=== PATIENT | female | born 1955 | race Caucasian/White ===

== ENCOUNTER → 2024-03-20 12:51 | Outpatient (REF) | payer MEDICARE, OTHER, SELFPAY | LOC: HWRAD 12:51 | PROVIDERS: ATTENDING PHYSICIAN Internal Medicine | DX: M27.8 Other specified diseases of jaws (principal) | CPT/HCPCS: 76536 ==

== ENCOUNTER 2024-04-20 12:11 | Emergency (ER) | payer MEDICARE, OTHER, SELFPAY ==
[2024-04-20 12:14] VITALS: BP 135/83
[2024-04-20 12:46] VITALS: BP 104/67; BP 114/70; BP 115/77; PULSE 57; PULSE 60; PULSE 74
--- NOTE | 2024-04-20 12:48 | ED.GENMED ---
History of Present Illness
General
Chief Complaint: Dizziness
Source: patient
Exam Limitations: none
Time Seen by Provider: 04/20/24 12:33
History of Present Illness
History of Present Illness:
68-year-old female presents complaining of dizziness worsening since yesterday. She describes a spinning sensation when she changes position. There is no associated double vision blurry vision or loss of vision. No headache or unilateral numbness
or weakness. No recent fever or URI symptoms. She does get slightly nauseous when she gets dizzy. The dizziness that tends to fatigue if she sits still. Also is worse with rolling over in bed. She was started on propranolol about a month ago
for essential tremor.
Past History
Past History
ED Past Medical History: Other (She is post hysterectomy status post tummy tuck status post left oopherectomy status post appendectomy)
Social History
Tobacco: Non-smoker
Alcohol: Occasional
Family History
Family History: CAD
Phy Exam
Physical Exam
Physical Exam:
General: Well-appearing female no acute respiratory distress
HEENT: Normocephalic atraumatic pupils equal round reactive to light TM slightly obscured by cerumen but portions visualized are within normal limits
Heart: Regular rate and rhythm no murmurs
Lungs: Clear no wheeze or rales
Neurologic exam: Alert and oriented x 3 finger-nose intact [id number] intact. No ataxia. No drift no dysarthria or aphasia [place]-Hallpike maneuver reproduces dizzy symptoms worse on the right side. Dizziness lasts approximately 10 to 15 seconds
and fades away. There is subtle horizontal nystagmus noted during this.
Extremities: No cyanosis
Course
Orders/Labs/Results
Orders:
Orders
04/20/24 12:46
Orthostatic VS- Treatment ONCE
PT Consult [Pt Eval And Treat] Urgent
Treatment: vestibular eval
Activity Level: Ambulate
07/05/24 13:04
Complete Blood Count/With Diff Urgent
Comprehensive Metabolic Panel Urgent
04/20/24 13:34
Meclizine [Antivert] 25 mg PO NOW STA
Abnormal Lab Results
04/20/24
13:04
Eosinophils % 7.1 H %
(0-6)
04/20/24 13:04
04/20/24 13:04
Vital Signs
Initial and Last Documented VS:
Initial Vital Signs
Temp Pulse Resp BP Pulse Ox
97.7 F 73 16 135/83 98
04/20/24 12:14 04/20/24 12:14 04/20/24 12:14 04/20/24 12:14 04/20/24 12:14
Last Documented Vital Signs
Temp Pulse Resp BP Pulse Ox
97.7 F 55 21 102/59 98
04/20/24 12:14 04/20/24 13:01 04/20/24 13:01 04/20/24 13:01 04/20/24 13:01
MDM/Problems Addressed
Differential Diagnosis Includes:
Dizziness. Consider positional vertigo versus volume depletion versus dehydration or electrolyte abnormality. Do not suspect CVA.
Check labs and orthostatics. Consult physical therapy for vestibular eval.
Consider treating with meclizine after PT evaluation
*Critical Care Note
Total Time (30-74mins, 75-104mins- exclusive of procedures): Not Applicable
Update Note
Update Note:
PT evaluated the patient and they are in agreement that her vertigo is worse on the right with [place]-Hallpike. They put her through the Alex maneuver. I did write for meclizine. She received a dose here. A prescription was provided for outpatient
vestibular therapy. She will be discharged home with positional vertigo. Do not suspect CVA
ED Attending Note
-
Portions of this chart may have been created with voice recognition software.� Occasional wrong word or��sound alike� substitutions may have occurred due to the inherent limitations of voice recognition software.
Discharge Plan
Departure
Patient Disposition: Home (Routine Discharge)
Date of Disposition: 04/20/24
Time of Disposition: 14:09
Patient with high blood pressure during this ER visit?: No
Discharge Problem:
Vertigo
Instructions: Vertigo (a type of dizziness)
Prescriptions:
New
meclizine 25 mg tablet
25 mg PO TID PRN (Reason: dizziness) Qty: 10 0RF
No Action
acetaminophen [Tylenol Extra Strength] 500 mg tablet
1,000 mg PO Q6HPRN PRN (Reason: mild pain) Qty: 1 0RF
ibuprofen 200 mg tablet
400 - 600 mg PO Q6HPRN PRN (Reason: moderate pain) Qty: 1 0RF
polyethylene glycol 3350 [Miralax] 17 gram/dose powder
4 g PO DAILY PRN (Reason: Constipation) Qty: 119 0RF
Rx Instructions:
start a laxative such as MIRALAX on day 2 after surgery if no bowel movement yet as long as no nausea/vomiting and passing gas
oxycodone 5 mg tablet
5 mg PO Q4HPRN PRN (Reason: breakthrough/severe pain) Qty: 10 0RF
Referrals:
Maira Silva MD [Family Provider] -
Activity Restrictions/Additional Instructions:
Stay hydrated. Use meclizine as needed for dizziness. Follow up with PT for vestibular rehab.
Interventions
Interventions:
*Risk Screen - Suicide Last Done: 04/20/24 12:14
*General Assessment Last Done: 04/20/24 12:14
*Neglect/Abuse Screening Last Done: 04/20/24 12:14
ED- Fall Risk Assessment Last Done: 04/20/24 12:51
*ED COVID-19 Vaccine History Last Done: 04/20/24 12:51
ED- Neurological Assessment Last Done: 04/20/24 12:51
ED- Cardiac Assessment Last Done: 04/20/24 12:51
ED Swallowing Screen Last Done: 04/20/24 12:51
Discharge Date and Time
Print Language: AZERI
[2024-04-20 12:51] VITALS: BMI 25.8
[2024-04-20 12:52] VITALS: BP 115/77
[2024-04-20 13:01] VITALS: BP 102/59
[2024-04-20 13:15] LABS: % Basophils 0.7 % (0-2); % Eosinophils 7.1 % (0-6); % Immature Granulocytes 0.2 % (0-0.5); % Lymphocytes 37.6 % (20.5-51.1); % Monocytes 6.7 % (1.7-9.3); % Neutrophils 47.7 % (42.2-75.2); Absolute Eosinophils 0.4 10^3/uL (0-0.7); Absolute Lymphocytes 2.2 10^3/uL (1.2-3.4); Absolute Monocytes 0.4 10^3/uL (0.1-0.6); Absolute Neutrophils 2.8 10^3/uL (1.4-6.5); Hemoglobin 13.1 g/dL (12.0-16.0); Mean Corp Hgb Conc. 34.5 g/dL (33.0-37.0); Mean Corpuscular Hgb 29.7 pg (27.0-31.0); Mean Corpuscular Volume 86.2 fL (81.0-99.0); Mean Platelet Volume 9.6 fL (7.4-10.4); Nucleated Red Blood Cells % 0 %; Platelet Count 309 10^3/uL (130-400); Red Blood Cell Count 4.41 10^6/uL (4.20-5.40); Red Cell Dist. Width 12.5 % (11.5-14.5); White Blood Cell Count 5.9 10^3/uL (4.8-10.8)
[2024-04-20 13:25] LABS: ALT (SGPT) 15 U/L (0-35); AST (SGOT) 19 U/L (14-36); Albumin 4.4 g/dl (3.5-5.0); Alkaline Phosphatase 74 U/L (38-126); Blood Urea Nitrogen 13 mg/dl (7-17); Calcium 9.3 mg/dl (8.4-10.2); Carbon Dioxide 26 mmol/L (22-30); Chloride 107 mmol/L (98-107); Estimated Creatinine Clearance 80 ml/min; Glucose 90 mg/dl (70-99); Potassium 4.2 mmol/L (3.5-5.1); Sodium 139 mmol/L (135-145); Total Bilirubin 0.4 mg/dl (0.2-1.3); Total Protein 6.6 g/dl (6.3-8.2); eGFR > 60.00
[2024-04-20] MEDS: ANTIVERT 25 MG PO (13:50)
[2024-04-20 14:00] VITALS: BP 98/68
[2024-04-20 14:31] VITALS: BP 106/68
== END 2024-04-20 14:35 | disposition home or self-care (01) ==
LOC: EMR 12:11
PROVIDERS: Physician Assistant; EMERGENCY PHYSICIAN Emergency Medicine; FAMILY PHYSICIAN Internal Medicine
DX: R42 Dizziness and giddiness (principal); R53.83 Other fatigue; G25.0 Essential tremor; Z82.49 Family history of ischemic heart disease and other diseases of the circulatory system; Z90.710 Acquired absence of both cervix and uterus
CPT/HCPCS: 99283; 80053; 85025

== ENCOUNTER → 2024-04-24 09:43 | Outpatient (REF) | payer MEDICARE, OTHER, SELFPAY | LOC: MRI 3T 09:43 | PROVIDERS: ATTENDING PHYSICIAN Internal Medicine | DX: M27.40 Unspecified cyst of jaw (principal) | CPT/HCPCS: 70543; A9575 ==

== ENCOUNTER → 2024-07-03 10:28 | Outpatient (REF) | payer MEDICARE, OTHER, SELFPAY | LOC: RCS 10:28 | PROVIDERS: ATTENDING PHYSICIAN Internal Medicine Cardiovascular Disease; FAMILY PHYSICIAN Internal Medicine | DX: I34.0 Nonrheumatic mitral (valve) insufficiency (principal) | CPT/HCPCS: 93306 ==

== ENCOUNTER → 2024-09-25 08:28 | Outpatient (REF) | payer MEDICARE, OTHER, SELFPAY ==
[2024-09-25 09:12] LABS: % Basophils 0.8 % (0-2); % Eosinophils 6.6 % (0-6); % Lymphocytes 42.4 % (20.5-51.1); % Monocytes 7.4 % (1.7-9.3); % Neutrophils 42.8 % (42.2-75.2); Absolute Eosinophils 0.3 10^3/uL (0-0.7); Absolute Lymphocytes 2.1 10^3/uL (1.2-3.4); Absolute Monocytes 0.4 10^3/uL (0.1-0.6); Absolute Neutrophils 2.1 10^3/uL (1.4-6.5); Hematocrit 38.4 % (37.0-47.0); Hemoglobin 13.2 g/dL (12.0-16.0); Mean Corp Hgb Conc. 34.4 g/dL (33.0-37.0); Mean Corpuscular Hgb 30.4 pg (27.0-31.0); Mean Corpuscular Volume 88.5 fL (81.0-99.0); Mean Platelet Volume 9.4 fL (7.4-10.4); Nucleated Red Blood Cells % 0 %; Platelet Count 292 10^3/uL (130-400); Red Blood Cell Count 4.34 10^6/uL (4.20-5.40); Red Cell Dist. Width 12.3 % (11.5-14.5)
[2024-09-25 10:04] LABS: ALT (SGPT) 18 U/L (0-35); AST (SGOT) 19 U/L (14-36); Albumin 4.1 g/dl (3.5-5.0); Alkaline Phosphatase 64 U/L (38-126); Blood Urea Nitrogen 13 mg/dl (7-17); Calcium 9.3 mg/dl (8.4-10.2); Carbon Dioxide 27 mmol/L (22-30); Chloride 104 mmol/L (98-107); Glucose 89 mg/dl (70-99); HDL Cholesterol 88 mg/dl; LDL Cholesterol, Calculated 119 mg/dl; Potassium 4.4 mmol/L (3.5-5.1); Sodium 139 mmol/L (135-145); Total Bilirubin 0.5 mg/dl (0.2-1.3); Total Cholesterol 221 mg/dl (50-199); Total Protein 6.4 g/dl (6.3-8.2); Triglyceride 74 mg/dl (10-149); Very Low Density Lipoprotein 14 mg/dl (0-30); eGFR > 60.00
[2024-09-25 10:33] LABS: TSH 0.98 uIU/ml (0.47-4.68)
[2024-09-27 16:33] LABS: Lyme Antibody Screen, EIA Negative (Negative)
== END ==
LOC: REG 08:28
PROVIDERS: ATTENDING PHYSICIAN Internal Medicine
DX: R53.83 Other fatigue (principal); G25.0 Essential tremor; E78.5 Hyperlipidemia, unspecified; M25.50 Pain in unspecified joint; A69.20 Lyme disease, unspecified; W57.XXXA Bitten or stung by nonvenomous insect and other nonvenomous arthropods, initial encounter
CPT/HCPCS: 36415; 80053; 80061; 84443; 85025; 86618

== ENCOUNTER → 2024-10-08 13:19 | Outpatient (REF) | payer MEDICARE, OTHER, SELFPAY | LOC: WDC 13:19 | PROVIDERS: ATTENDING PHYSICIAN Obstetrics & Gynecology Gynecology; FAMILY PHYSICIAN Internal Medicine | DX: Z12.31 Encounter for screening mammogram for malignant neoplasm of breast (principal) | CPT/HCPCS: 77063; 77067 ==

== ENCOUNTER → 2025-09-15 10:35 | Outpatient (REF) | payer MEDICARE, OTHER, SELFPAY | LOC: PAVMRI 10:35 | PROVIDERS: ATTENDING PHYSICIAN Psychiatry & Neurology Neurology; FAMILY PHYSICIAN Internal Medicine | DX: R26.89 Other abnormalities of gait and mobility (principal) | CPT/HCPCS: 70551 ==

== ENCOUNTER → 2025-10-03 12:37 | Outpatient (REF) | payer MEDICARE, OTHER, SELFPAY ==
[2025-10-03 13:48] LABS: Blood Urea Nitrogen 10 mg/dl (7-17); Calcium 9.5 mg/dl (8.4-10.2); Carbon Dioxide 27 mmol/L (22-30); Chloride 105 mmol/L (98-107); Glucose 77 mg/dl (70-99); HDL Cholesterol 97 mg/dl; LDL Cholesterol, Calculated 106 mg/dl; Potassium 4.1 mmol/L (3.5-5.1); Sodium 137 mmol/L (135-145); Very Low Density Lipoprotein 12 mg/dl (0-30); eGFR > 60.00
[2025-10-03 13:49] LABS: Glycohemoglobin (HgbA1c) 4.9 % (4.0-5.9)
== END ==
LOC: REG 12:37
PROVIDERS: ATTENDING PHYSICIAN Psychiatry & Neurology Neurology; FAMILY PHYSICIAN Internal Medicine; REFERRING PHYSICIAN Internal Medicine Cardiovascular Disease
DX: I63.9 Cerebral infarction, unspecified (principal); Z79.899 Other long term (current) drug therapy
CPT/HCPCS: 36415; 80048; 80061; 83036; 83880

== ENCOUNTER → 2025-10-08 13:28 | Outpatient (REF) | payer MEDICARE, OTHER, SELFPAY | LOC: RCS 13:28 | PROVIDERS: ATTENDING PHYSICIAN Physician Assistant; FAMILY PHYSICIAN Internal Medicine | DX: I34.0 Nonrheumatic mitral (valve) insufficiency (principal); R07.89 Other chest pain | CPT/HCPCS: 93017; 93350 ==

== ENCOUNTER → 2025-10-09 10:51 | Outpatient (REF) | payer MEDICARE, OTHER, SELFPAY | LOC: RAD 10:51 | PROVIDERS: ATTENDING PHYSICIAN Physician Assistant; FAMILY PHYSICIAN Internal Medicine | DX: I63.9 Cerebral infarction, unspecified (principal); I34.0 Nonrheumatic mitral (valve) insufficiency; R07.89 Other chest pain | CPT/HCPCS: 93306 ==

== ENCOUNTER 2025-10-15 12:00 | Outpatient (RCR) | payer MEDICARE, OTHER, SELFPAY | END 2025-10-15 23:59 | disposition home or self-care (01) | LOC: ROT 12:00 | PROVIDERS: ATTENDING PHYSICIAN Specialist; FAMILY PHYSICIAN Internal Medicine | DX: I69.398 Other sequelae of cerebral infarction (principal); Z73.6 Limitation of activities due to disability; I69.310 Attention and concentration deficit following cerebral infarction; G24.8 Other dystonia; M62.81 Muscle weakness (generalized); R26.89 Other abnormalities of gait and mobility | CPT/HCPCS: 97110; 97112; 97162; 97167; 97530; 97535 ==